=== PATIENT | female | born 1935 | race Caucasian/White ===

== ENCOUNTER 2016-12-03 11:09 | Emergency (ER) | payer MEDICARE, BC ==
[2012-10-01 06:33] VITALS: BMI 21.6
--- NOTE | ~2016-12-03 | CN ---
PATIENT NAME:ZAHIRA GOMEZ MEDICAL RECORD: [id number] : 33 LOCATION:.ER ADMIT DATE: ACCOUNT: [id number] CONSULTING PHYSICIAN: JULIANNA COLLIER MD REFERRING PHYSICIAN: YEIMI PINEDA MD CARDIOLOGY CONSULT PROBLEM LIST: 1. Chest pain. HISTORY OF PRESENT ILLNESS: The patient has a history of chest pain. Many years ago she had a stress test. This was normal. She has had recurrences of the same chest pain which is atypical. It is a sharp pain centered around the left breast area intermittent. Her electrocardiogram is normal. She is now pain free. PHYSICAL EXAMINATION: HEAD, EYES, EARS, NOSE, AND THROAT: Benign. NECK: Supple. No jugular venous distention. Carotid upstroke plus two bilaterally without bruits. LUNGS: Overall clear to auscultation and percussion. HEART: Regular. Normal S1, normal S2. No S3, no S4. No murmurs. BONES, JOINTS, EXTREMITIES: No clubbing, cyanosis, or edema. OVERALL IMPRESSION: Atypical chest pain, the same as she had previously with normal cardiac catheterization. Low likelihood of hemodynamically significant coronary artery disease. We will risk stratify with stress testing and Cardiolite imaging as an outpatient. Further care depends upon the findings of the stress test. JULIANNA COLLIER MD CC: [id number] DICTATION DATE: 12/03/16 1500 [employer] CONSULTANT: DM 12/04/16 0948 [facility] ER 12/03/16 [facility] [address] [place] [address]
[2016-12-03 11:41] LABS: BASOPHILS 0.5 % (0-2); EOSINOPHILS 1.1 % (0-7); HEMATOCRIT 41.6 % (36.0-48.0); HEMOGLOBIN 13.6 g/dL (12-16); IMMATURE GRANULOCYTES 0.2 % (0-5); LYMPHOCYTES 30.9 % (15-50); MCH 30.6 pg (26.0-34.0); MCHC 32.7 g/dL (31.0-37.0); MCV 93.5 fL (80.0-100.0); MEAN PLATELET VOLUME 10.2 fL (7.4-10.4); MONOCYTES 9.2 % (2-11); NEUTROPHILS 58.1 % (40-80); PLATELET COUNT 169 10x3/uL (130-400); RBC 4.45 10x6/uL (4.00-5.40); RDW 13.1 % (11.5-14.5); WBC 6.4 10x3/uL (4.8-10.8)
[2016-12-03 12:03] LABS: ALBUMIN 3.9 g/dL (3.4-5.0); ALKALINE PHOSPHATASE 90 U/L (46-116); ALT (SGPT) 39 U/L (10-68); BILIRUBIN - TOTAL 1.27 mg/dL (0.2-1.3); CALC OSMOLALITY 282 mosm/kg (275-300); CALCIUM 8.9 mg/dL (8.5-10.1); CARBON DIOXIDE 26.8 mmol/L (21.0-32.0); CHLORIDE - SERUM 106 mmol/L (98-107); CREATININE - SERUM 0.9 mg/dL (0.6-1.3); GLUCOSE 96 mg/dL (74-106); POTASSIUM - SERUM 4.2 mmol/L (3.5-5.1); PROTEIN - SERUM 7.1 g/dL (6.4-8.2); SODIUM 142 mmol/L (136-145); UREA NITROGEN 12 mg/dL (7-18); eGFR NON AFRICAN AMERICAN 63 mL/min (90-120)
[2016-12-03 12:11] LABS: CHOL - HDL RATIO 2.1 ratio (2.3-4.1); CHOLESTEROL, TOTAL 187 mg/dL (0-200); CKMB 3.6 U/L (0.0-3.6); CREATINE KINASE 161 UL (21-215); HDL CHOLESTEROL 89 mg/dL (32-96); LDL CHOLESTEROL 84 mg/dL (0-100); LDL-HDL RATIO 0.9 ratio (1.5-3.5); TRIGLYCERIDE 71 mg/dL (30-200)
[2016-12-03 12:19] LABS: TROPONIN-I < 0.017 ng/mL (0.000-0.060)
== END 2016-12-03 13:20 | disposition home or self-care (01) ==
LOC: D.ER 11:09
PROVIDERS: Emergency Medicine
DX: R07.9 Chest pain, unspecified (principal); I10 Essential (primary) hypertension

== ENCOUNTER 2017-08-04 13:43 | Inpatient (IN) | payer MEDICARE, BC ==
[~2017-08-04] VITALS: Ht 157.5 cm; Wt 54.4 kg
[2017-08-04 15:32] LABS: APPEARANCE CLEAR (CLEAR); BILIRUBIN NEGATIVE (NEGATIVE); COLOR STRAW (YELLOW); GLUCOSE NEGATIVE (NEGATIVE); KETONE NEGATIVE (NEGATIVE); NITRITE NEGATIVE (NEGATIVE); PROTEIN NEGATIVE (NEGATIVE); UROBILINOGEN NORMAL (NORMAL)
[2017-08-04 15:33] LABS: WHITE CELLS - URINE 0-5 /hpf (0-5)
[2017-08-04 15:34] LABS: BACTERIA FEW /hpf (NONE SEEN); RED CELLS - URINE 0-5 /hpf (0-5)
[2017-08-04 15:43] LABS: BASOPHILS 0.1 % (0-2); EOSINOPHILS 0.4 % (0-7); HEMATOCRIT 40.9 % (36.0-48.0); HEMOGLOBIN 13.6 g/dL (12-16); IMMATURE GRANULOCYTES 0.1 % (0-5); LYMPHOCYTES 24.4 % (15-50); MCH 30.4 pg (26.0-34.0); MCHC 33.3 g/dL (31.0-37.0); MCV 91.3 fL (80.0-100.0); MEAN PLATELET VOLUME 10.2 fL (7.4-10.4); MONOCYTES 9.1 % (2-11); NEUTROPHILS 65.9 % (40-80); PLATELET COUNT 158 10x3/uL (130-400); RBC 4.48 10x6/uL (4.00-5.40); RDW 13.3 % (11.5-14.5); WBC 7.5 10x3/uL (4.8-10.8)
[2017-08-04 16:18] LABS: ALBUMIN 3.8 g/dL (3.4-5.0); ALKALINE PHOSPHATASE 67 U/L (46-116); ALT (SGPT) 32 U/L (10-68); CALC OSMOLALITY 280 mosm/kg (275-300); CARBON DIOXIDE 23.1 mmol/L (21.0-32.0); CHLORIDE - SERUM 105 mmol/L (98-107); CREATINE KINASE 131 UL (21-215); CREATININE - SERUM 0.8 mg/dL (0.6-1.3); GLUCOSE 87 mg/dL (74-106); LIPASE 731 U/L (73-393); MAGNESIUM - SERUM 1.8 mg/dL (1.8-2.4); POTASSIUM - SERUM 3.2 mmol/L (3.5-5.1); PRO BNP 411 pg/mL (0-450); PROTEIN - SERUM 7.1 g/dL (6.4-8.2); SODIUM 141 mmol/L (136-145); THYROID STIMULATING HORMONE 2.49 uIU/mL (0.36-3.74); TROPONIN-I < 0.017 ng/mL (0.000-0.060); UREA NITROGEN 14 mg/dL (7-18); eGFR NON AFRICAN AMERICAN 72 mL/min (90-120)
[2017-08-04 16:48] LABS: INR 2.42 (0.85-1.17); PROTIME 25.7 SECONDS (11.6-15.0)
[2017-08-05 01:20] VITALS: BP 132/66; BMI 21.6
[2017-08-05] MEDS ORDERED: LISINOPRIL5 MG PO (03:42)
[2017-08-05] MEDS ORDERED: COUMADIN5 MG PO (03:42)
[2017-08-05] MEDS ORDERED: EVISTA60 MG PO (03:42)
[2017-08-05] MEDS ORDERED: LIPITOR10 MG PO (03:43)
[2017-08-05] MEDS ORDERED: BETAPACE 80 MG80 MG PO (03:43)
[2017-08-05] MEDS ORDERED: LEVOTHYROXINE112 MCG PO (03:44)
[2017-08-05 04:00] VITALS: BP 145/78
[2017-08-05 09:21] VITALS: BP 124/66
[2017-08-05 13:01] VITALS: BP 124/72
[2017-08-05 17:36] VITALS: BP 136/79
[2017-08-05 19:00] VITALS: BP 133/76
[2017-08-06] VITALS: BP 138/80
[2017-08-06 04:00] VITALS: BP 139/74
[2017-08-06 06:59] LABS: BASOPHILS 0.1 % (0-2); EOSINOPHILS 0.7 % (0-7); HEMOGLOBIN 11.8 g/dL (12-16); IMMATURE GRANULOCYTES 0.1 % (0-5); LYMPHOCYTES 20.5 % (15-50); MCHC 32.8 g/dL (31.0-37.0); MCV 91.6 fL (80.0-100.0); MEAN PLATELET VOLUME 10.2 fL (7.4-10.4); MONOCYTES 13.5 % (2-11); NEUTROPHILS 65.1 % (40-80); PLATELET COUNT 158 10x3/uL (130-400); RBC 3.93 10x6/uL (4.00-5.40); RDW 13.4 % (11.5-14.5); WBC 7.4 10x3/uL (4.8-10.8)
[2017-08-06 07:23] LABS: ALKALINE PHOSPHATASE 52 U/L (46-116); BILIRUBIN - TOTAL 1.18 mg/dL (0.2-1.3); CARBON DIOXIDE 23.8 mmol/L (21.0-32.0); CHLORIDE - SERUM 110 mmol/L (98-107); CREATININE - SERUM 0.7 mg/dL (0.6-1.3); GLUCOSE 100 mg/dL (74-106); POTASSIUM - SERUM 3.3 mmol/L (3.5-5.1); PROTEIN - SERUM 5.7 g/dL (6.4-8.2); SODIUM 143 mmol/L (136-145); eGFR NON AFRICAN AMERICAN 85 mL/min (90-120)
[2017-08-06 07:27] LABS: ALBUMIN 2.8 g/dL (3.4-5.0); ALT (SGPT) 21 U/L (10-68); CALC OSMOLALITY 283 mosm/kg (275-300); UREA NITROGEN 9 mg/dL (7-18)
[2017-08-06 08:41] VITALS: BP 140/83
[2017-08-06 10:53] VITALS: Ht 157.5 cm; Wt 54.4 kg
[2017-08-06 12:01] VITALS: BP 140/74
[2017-08-06] MEDS ORDERED: FLAGYL500 MG PO (12:04)
== END 2017-08-06 14:44 | disposition home or self-care (01) | DRG 373 ==
LOC: D.ER 13:43 → D.M2 20:52 → D.EDHOLD 20:52 → OBSVTIME 20:53 → D.M2 22:09
PROVIDERS: Family Medicine; Family Medicine Adult Medicine; Nurse Practitioner Family
DX: A04.72 Enterocolitis due to Clostridium difficile, not specified as recurrent (principal); E86.9 Volume depletion, unspecified; I48.0 Paroxysmal atrial fibrillation; Z79.01 Long term (current) use of anticoagulants; I77.89 Other specified disorders of arteries and arterioles; I10 Essential (primary) hypertension; E78.5 Hyperlipidemia, unspecified